=== PATIENT | female | born 1980 | race Caucasian/White ===

== ENCOUNTER 2024-01-08 19:25 | Emergency (ER) | payer BC, OTHER ==
[2024-01-08] MEDS ORDERED: METHYLPREDNISOLONE 125 MG INJ ONE (19:39)
[2024-01-08] MEDS ORDERED: DIPHENHYDRAMINE 50 MG/ML VIAL ONE (19:39)
[2024-01-08] MEDS ORDERED: FAMOTIDINE 20 MG/2 ML VIAL IV ONE (19:39)
[2024-01-08] MEDS ORDERED: LIDOCAINE VISCOUS 2% 10ML ORAL SOLN ONE (22:24)
[2024-01-08] MEDS ORDERED: MAGNES/ALUMIN/SIMET 30ML UCUP ONE (22:24)
--- NOTE | 2024-01-08 22:49 | ER ---
Nurse's Notes [facility] Name: Moon Dowd Age: 43 yrs Sex: Female : 1980 Arrival Date: 01/08/2024 Time: 19:25 Bed 16 Private MD: Diagnosis: Toxic effect of venom of bees, accidental (unintentional) Presentation: 01/07 19:36 Chief complaint: Patient states: Bee was in her drink and she swallowed it onset 3 hrs cm10 ago. Pt has pain to right side of throat. Pt also reporting difficulty swallowing. Pt took Benadryl 50 mg when it happened. Coronavirus screen: Client denies travel out of the [place] in the last 14 days. Ebola Screen: Patient denies travel to an Ebola-affected area in the 21 days before illness onset. No symptoms or risks identified at this time. Initial Sepsis Screen: Does the patient meet any 2 criteria? No. Patient's initial sepsis screen is negative. Does the patient have a suspected source of infection? No. Patient's initial sepsis screen is negative. Risk Assessment: Do you want to hurt yourself or someone else? Patient reports no desire to harm self or others. Onset of symptoms was January 08, 2024. 19:36 Method Of Arrival: Ambulatory cm10 19:36 Acuity: BASSAM 2 cm10 Triage Assessment: 19:37 General: Appears in no apparent distress. uncomfortable, Behavior is calm, cooperative. cm10 EENT: Reports difficulty swallowing. Neuro: No deficits noted. Level of Consciousness is awake, alert, obeys commands, Oriented to person, place, time, situation, Appropriate for age. 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 - Infectious Disease History:: Denies. - Social history:: Smoking status: unknown. - Family history:: not pertinent. - Hospitalizations: : No recent hospitalization is reported. Screenin:32 [facility] ED Fall Risk Assessment (Adult) History of falling in the last 3 months, cp4 including since admission No falls in past 3 months (0 pts) Confusion or Disorientation No (0 pts) Intoxicated or Sedated No (0 pts) Impaired Gait No (0 pts) Mobility Assist Device Used No (0 pt) Altered Elimination No (0 pt) Score/Fall Risk Level 0 - 2 = Low Risk Oriented to surroundings, Maintained a safe environment, Assessed \T\ reinforced patient's understanding of fall precautions, Hourly rounding (assess needs \T\ fall precautionary measures) done. Abuse screen: Denies threats or abuse. Nutritional screening: No deficits noted. Tuberculosis screening: No symptoms or risk factors identified. Assessment: 20:32 General: Appears in no apparent distress. uncomfortable, Behavior is calm, cooperative, cp4 appropriate for age. Pain: Complains of pain in throat Pain currently is 7 out of 10 on a pain scale. Neuro: Level of Consciousness is awake, alert, obeys commands, Oriented to person, place, time, situation. Cardiovascular: Patient's skin is warm and dry. Rhythm is sinus rhythm. Respiratory: Airway is patent Respiratory effort is even, unlabored. GI: No signs and/or symptoms were reported involving the gastrointestinal system. : No signs and/or symptoms were reported regarding the genitourinary system. EENT: Reports bee sting in throat. Derm: No signs and/or symptoms reported regarding the dermatologic system. Musculoskeletal: No signs and/or symptoms reported regarding the musculoskeletal system. 21:30 Reassessment: Patient appears in no apparent distress at this time. Patient and/or cp4 family updated on plan of care and expected duration. Pain level reassessed. Patient is alert, oriented x 3, equal unlabored respirations, skin warm/dry/pink. 22:38 Reassessment: Patient appears in no apparent distress at this time. Patient and/or cp4 family updated on plan of care and expected duration. Pain level reassessed. Patient is alert, oriented x 3, equal unlabored respirations, skin warm/dry/pink. Vital Signs: 19:36 BP 175 / 98; Pulse 67; Resp 18; Pulse Ox 100% ; Weight 63.5 kg; Height 5 ft. 5 in. ; cm10 Pain 10/10; 20:00 BP 155 / 107; Pulse 57; Resp 18; Pulse Ox 100% ; cp4 21:00 BP 165 / 99; Pulse 99; Resp 18; Pulse Ox 100% ; cp4 22:00 BP 133 / 54; Pulse 75; Resp 18; Pulse Ox 100% ; cp4 23:00 BP 134 / 55; Pulse 77; Resp 18; Pulse Ox 100% ; cp4 19:36 Body Mass Index 23.30 (63.50 kg, 165.1 cm) cm10 19:36 Pain Scale: Adult cm10 ED Course: 19:27 Patient arrived in ED. mg5 19:28 Sunday Cavazos MD is Attending Physician. rn 19:36 Mely Bello is Primary Nurse. cp4 19:37 Triage completed. cm10 19:38 Arm band placed on Patient placed in an exam room, on a stretcher. cm10 19:45 Inserted saline lock: 22 gauge in left antecubital area, using aseptic technique. Blood cp4 collected. Flushed with 10 mL NS. 20:32 Bed in low position. Call light in reach. Side rails up X 1. Provided Education on: cp4 allergic reaction. 20:32 No provider procedures requiring assistance completed. cp4 23:26 intact, bleeding controlled, No redness/swelling at site. Pressure dressing applied. cp4 Administered Medications: 19:44 Drug: diphenhydrAMINE IVP 50 mg IVP once Route: IVP; Site: left antecubital; cp4 22:36 Follow up: Response: No adverse reaction cp4 19:44 Drug: MethylPrednisoLONE IVP 125 mg IVP once Route: IVP; Site: left antecubital; cp4 22:36 Follow up: Response: No adverse reaction cp4 19:44 Drug: Famotidine IVP 20 mg IVP once; dilute with 10 mL 0.9% NaCl; give over 2 minutes cp4 Route: IVP; Site: left antecubital; 22:36 Follow up: Response: No adverse reaction cp4 22:28 Drug: GI Cocktail without - (Maalox PO 30 ml, Lidocaine Mucous Membrane 2 % 15 cp4 ml) PO once Route: PO; 23:27 Follow up: Response: No adverse reaction cp4 Medication: 20:32 VIS not applicable for this client. cp4 Outcome: 22:49 Discharge ordered by . rn 23:26 Discharged to home ambulatory, cp4 23:26 Condition: stable 23:26 Discharge instructions given to patient, Instructed on discharge instructions, follow up and referral plans. medication usage, Demonstrated understanding of instructions, follow-up care, medications, Prescriptions given X 1, 23:27 Patient left the ED. cp4 Signatures: Sunday Cavazos MD MD rn Artemio, SARAH Diehl RN cm10 Jackeline Wei mg5 Mely Bello 4
--- NOTE | 2024-01-08 22:49 | EDPHYS ---
Physician Documentation [facility] Name: Moon Dowd Age: 43 yrs Sex: Female : 1980 Arrival Date: 01/08/2024 Time: 19:25 Bed 16 Private MD: ED Physician Sunday Cavazos HPI: 01/07 19:41 This 43 yrs old Female presents to ER via Ambulatory with complaints of SWALLOWED rn THROAT, Difficulty Swallowing. 19:41 The patient presents with Sensation of swelling. The patient describes throat pain as rn Swelling. Onset: The symptoms/episode began/occurred 3 hour(s) ago. Severity of symptoms: At their worst the symptoms were mild, in the emergency department the symptoms are unchanged. Modifying factors: The symptoms are alleviated by nothing, the symptoms are aggravated by nothing. The patient has not experienced similar symptoms in the past. Patient reports accidentally swallowed a bee, was in her drink, thinks stung her in the throat. Happened 3 hours ago. Took 50 mg of Benadryl. Reports subjective swelling to the right throat and pain. No trouble breathing. Pain with swallowing.. 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 - Infectious Disease History:: Denies. - Social history:: Smoking status: unknown. - Family history:: not pertinent. - Hospitalizations: : No recent hospitalization is reported. ROS: 19:41 Constitutional: Negative for fever, chills, and weight loss, Eyes: Negative for injury, rn pain, redness, and discharge, ENT: Positive for odynophagia Cardiovascular: Negative for chest pain, palpitations, and edema, Respiratory: Negative for shortness of breath, cough, wheezing, and pleuritic chest pain, Abdomen/GI: Negative for abdominal pain, nausea, vomiting, diarrhea, and constipation, MS/Extremity: Negative for injury and deformity, Neuro: Negative for headache, weakness, numbness, tingling, and seizure, Exam: 19:41 Constitutional: This is a well developed, well nourished patient who is awake, alert, rn and in no acute distress. Ambulatory to room without difficulty or assistance. Head/Face: Normocephalic, atraumatic. ENT: Mild erythema right posterior pharynx without stinger identified. No stridor. No unilateral swelling noted. Neck: Trachea midline no neck swelling or unilateral swelling noted. Cardiovascular: Regular rate and rhythm. No pulse deficits. Respiratory: No increased work of breathing, no retractions or nasal flaring. Skin: Warm, dry, no rash or urticaria MS/ Extremity: Pulses equal, no cyanosis. Neuro: Awake and alert, GCS 15 Vital Signs: 19:36 BP 175 / 98; Pulse 67; Resp 18; Pulse Ox 100% ; Weight 63.5 kg; Height 5 ft. 5 in. ; cm10 Pain 10/10; 20:00 BP 155 / 107; Pulse 57; Resp 18; Pulse Ox 100% ; cp4 21:00 BP 165 / 99; Pulse 99; Resp 18; Pulse Ox 100% ; cp4 22:00 BP 133 / 54; Pulse 75; Resp 18; Pulse Ox 100% ; cp4 23:00 BP 134 / 55; Pulse 77; Resp 18; Pulse Ox 100% ; cp4 19:36 Body Mass Index 23.30 (63.50 kg, 165.1 cm) cm10 19:36 Pain Scale: Adult cm10 MDM: 19:28 Medical Screening Exam initiated rn 22:00 ED course: Patient states feels better, no progression of symptoms, is improving.. rn 22:47 Differential diagnosis: Stung by bee, localized allergic reaction. Data reviewed: vital rn signs, nurses notes, and as a result, I will discharge patient. Counseling: I had a detailed discussion with the patient and/or guardian regarding the historical points, exam findings, and any diagnostic results supporting the discharge/admit diagnosis, the need for outpatient follow up, to return to the emergency department if symptoms worsen or persist or if there are any questions or concerns that arise at home. Response to treatment: the patient's symptoms have markedly improved after treatment, and as a result, I will discharge patient. Special discussion: I discussed with the patient/guardian in detail that at this point there is no indication for admission to the hospital. It is understood, however, that if the symptoms persist or worsen the patient needs to return immediately for re-evaluation. ED course: Patient continues to improve, voice actually sounds better, will discharge home with return precautions and steroids.. 01/07 19:28 Order name: IV Start; Complete Time: 19:37 rn 01/07 19:28 Order name: Cardiac monitoring; Complete Time: 19:44 rn 01/07 19:28 Order name: O2 Sat Monitoring; Complete Time: :44 rn Administered Medications: 19:44 Drug: diphenhydrAMINE IVP 50 mg IVP once Route: IVP; Site: left antecubital; cp4 22:36 Follow up: Response: No adverse reaction cp4 19:44 Drug: MethylPrednisoLONE IVP 125 mg IVP once Route: IVP; Site: left antecubital; cp4 22:36 Follow up: Response: No adverse reaction cp4 19:44 Drug: Famotidine IVP 20 mg IVP once; dilute with 10 mL 0.9% NaCl; give over 2 minutes cp4 Route: IVP; Site: left antecubital; 22:36 Follow up: Response: No adverse reaction cp4 22:28 Drug: GI Cocktail without - (Maalox PO 30 ml, Lidocaine Mucous Membrane 2 % 15 cp4 ml) PO once Route: PO; 23:27 Follow up: Response: No adverse reaction cp4 Disposition Summary: 01/08/24 22:49 Discharge Ordered Notes: Location: Home rn Problem: new rn Symptoms: have improved rn Condition: Stable rn Diagnosis - Toxic effect of venom of bees, accidental (unintentional) rn Followup: rn - With: Private Physician - When: As needed - Reason: Recheck today's complaints, Re-evaluation by your physician Discharge Instructions: - Discharge Summary Sheet rn - Bee, Wasp, or Hornet Sting, Adult rn Forms: - Medication Reconciliation Form rn - Antibiotic yarn man - Prescription Opioid Use rn - Patient Portal Instructions rn - Leadership Thank You Letter rn Prescriptions: - Prednisone 20 mg Oral Tablet - take 3 tablets ORAL route once daily for 5 days; 15 tablet; Refills: 0, Product rn Selection Permitted Signatures: Sunday Cavazos MD MD rn Martinez, Clarissa, RN RN Mely Barry cp4 Corrections: (The following items were deleted from the chart) :44 19:41 Constitutional: This is a well developed, well nourished patient who is awake, rn alert, and in no acute distress. Ambulatory to room without difficulty or assistance. Head/Face: Normocephalic, atraumatic. ENT: Mild erythema right posterior pharynx without stinger identified. No stridor. No unilateral swelling noted. Neck: Trachea midline no neck swelling or unilateral swelling noted. Cardiovascular: Regular rate and rhythm. No pulse deficits. Respiratory: No increased work of breathing, no retractions or nasal flaring. Abdomen/GI: Soft, non-tender Skin: Warm, dry, no rash or urticaria MS/ Extremity: Pulses equal, no cyanosis. Neuro: Awake and alert, GCS 15 rn
[2024-01-08 23:33] VITALS: O2SAT 100
[2024-01-08 23:37] VITALS: BP 134/55
== END 2024-01-08 23:27 | disposition home or self-care (01) ==
LOC: ER 19:25
DX: T63.441A Toxic effect of venom of bees, accidental (unintentional), initial encounter (principal)
CPT/HCPCS: 96375; 96374; 99284; J1200; J2919